=== PATIENT | male | born 1970 | race Caucasian/White ===

== ENCOUNTER 2022-08-30 21:19 | Inpatient (IN) | payer MEDICAID ==
[~2022-08-30] VITALS: Ht 167.6 cm; Wt 68.5 kg
[2022-08-30] MEDS ORDERED: NOREPINEPHRINE 8MG/250ML PMX 250 ML IV ONE (21:30)
[2022-08-30] MEDS ORDERED: DOPAMINE 800MG/500ML PREMIX 500 ML IV ONE (21:45)
[2022-08-30] MEDS ORDERED: NOREPINEPHRINE 8 MG in DEXT 5% WATER 242 ML IV NR (21:45)
[2022-08-30] MEDS ORDERED: DOPAMINE 800 MG PREMIX 250 ML IV PRN (22:00)
[2022-08-30] MEDS ORDERED: DOPAMINE 400 MG PREMIX 250 ML IV PRN (22:00)
[2022-08-30 22:39] LABS: BASOPHILS % 1.3 % (0.0-2.0); EOSINOPHILS % 4.4 % (0.0-5.0); LYMPHOCYTES % 12.9 % (20.0-50.0); MEAN CORPUSCULAR HEMOGLOBIN 29.6 pg (28.0-32.0); MEAN CORPUSCULAR VOLUME 89.1 fL (80.0-94.0); NEUTROPHILS % 74.4 % (40.0-76.0); PLATELET 152 x1000/uL (130-400); RED BLOOD CELL COUNT 4.04 mill/uL (4.7-6.1); RED CELL DISTRIBUTION WIDTH 17.9 % (11.6-14.6)
[2022-08-30 22:45] LABS: CHLORIDE 99 mEq/L (98-107)
[2022-08-30 22:57] LABS: ETHANOL BLOOD < 10 mg/dL
[2022-08-30] MEDS ORDERED: DEXTROSE 50% WATER 50ML SYRINGE IV ONE (23:30)
[2022-08-30] MEDS ORDERED: INSULIN REGULAR (HUMULIN R) 300UNITS/3ML VIAL IV ONE (23:30)
[2022-08-30] MEDS ORDERED: ALBUTEROL (0.083%) 2.5MG/3ML NEB HHN ONE (23:30)
[2022-08-30] MEDS ORDERED: SODIUM BICARBONATE 8.4% 1 MEQ/ML 50ML SYR IV ONE (23:30)
[2022-08-30] MEDS ORDERED: CALCIUM CHLORIDE 1GM/10ML SYR IV ONE (23:30)
[2022-08-31] VITALS (37 sets, daily range): BP systolic 138–185; BP diastolic 50–112
[2022-08-31] MEDS ORDERED: NOREPINEPHRINE 8MG/250ML PMX 250 ML IV ONE (00:45)
[2022-08-31] MEDS ORDERED: NOREPINEPHRINE 8 MG in DEXT 5% WATER 242 ML IV NR (01:00)
[2022-08-31] MEDS ORDERED: ONDANSETRON HCL 4MG/2ML INJ IV PRN (06:00)
[2022-08-31] MEDS ORDERED: DIPHENHYDRAMINE 50MG/ML VIAL IV PRN (06:00)
[2022-08-31] MEDS ORDERED: ACETAMINOPHEN 325MG TABLET PO PRN (06:00)
[2022-08-31] MEDS ORDERED: NOREPINEPHRINE 32 MG in DEXT 5% WATER 218 ML IV PRN (06:00)
[2022-08-31 06:23] LABS: HEPATITIS B SURFACE ANTIGEN NEGATIVE
[2022-08-31 08:14] LABS: BASOPHILS % 1.2 % (0.0-2.0); EOSINOPHILS % 3.4 % (0.0-5.0); HEMATOCRIT. 28.3 % (42.0-52.0); HEMOGLOBIN. 9.5 g/dL (14.0-18.0); LYMPHOCYTES % 13.6 % (20.0-50.0); MEAN CORPUSCULAR HEMOGLOBIN 29.7 pg (28.0-32.0); MEAN CORPUSCULAR VOLUME 88.6 fL (80.0-94.0); MEAN PLATELET VOLUME 8.6 fl (7.4-10.4); NEUTROPHILS % 72.8 % (40.0-76.0); PLATELET 92 x1000/uL (130-400); RED CELL DISTRIBUTION WIDTH 17.9 % (11.6-14.6)
[2022-08-31 08:23] LABS: PHOSPHORUS 2.9 mg/dL (2.5-4.9)
[2022-08-31] MEDS ORDERED: CARVEDILOL 12.5MG TABLET PO SCH (09:00)
[2022-08-31] MEDS ORDERED: FUROSEMIDE 40MG TABLET PO SCH (09:00)
[2022-08-31] MEDS ORDERED: GABAPENTIN 100MG CAPSULE PO SCH (21:00)
[2022-08-31] MEDS ORDERED: TRAZODONE HCL 50MG TABLET PO SCH (21:00)
== END 2022-08-31 13:00 | disposition home or self-care (01) | DRG 425 ==
LOC: ER 21:19 → CVICU 08-31 01:08 → EDBEDREQTM 08-31 01:20 → EDBEDREQ 08-31 01:20
PROVIDERS: ADMIT Internal Medicine; ATTEND Internal Medicine
PROC: 5A1D70Z Performance of Urinary Filtration, Intermittent, Less than 6 Hours Per Day (ICD-10-PCS; principal; 2022-08-31)
DX: E87.5 Hyperkalemia (principal); R57.9 Shock, unspecified; I44.2 Atrioventricular block, complete; I12.0 Hypertensive chronic kidney disease with stage 5 chronic kidney disease or end stage renal disease; D69.6 Thrombocytopenia, unspecified; N18.6 End stage renal disease; E11.22 Type 2 diabetes mellitus with diabetic chronic kidney disease; D63.1 Anemia in chronic kidney disease; Z99.2 Dependence on renal dialysis
CPT/HCPCS: 36415; 71045; 80048; 80053; 80320; 82962; 83605; 83880; 84100; 84443; 84484; 85025; 86705; 86709; 86803; 87340; 90935; 93005; 94644; 99291; J1265; J1815; J2405; J3490; J7060; G0480

== ENCOUNTER 2025-01-12 12:58 | Emergency (ER) | payer MEDICAID ==
[~2025-01-12] VITALS: Ht 170.2 cm; Wt 75.0 kg
[~2025-01-12 12:58] MED LIST: ATOR40TA70 PO; CARV25TA47 PO; GABA-1180 PO
[2025-01-12 13:00] VITALS: O2SAT 99
[2025-01-12 13:27] VITALS: TEMP 37; O2SAT 99
[2025-01-12 14:23] LABS: BASOPHILS % 1.5 % (0.0-2.0); EOSINOPHILS % 6.1 % (0.0-5.0); LYMPHOCYTES % 9.5 % (20.0-50.0); MEAN PLATELET VOLUME 7.7 fl (7.4-10.4); MONOCYTES % 8.1 % (2.0-8.0); NEUTROPHILS % 74.8 % (40.0-76.0); PLATELET 147 x1000/uL (130-400); RED BLOOD CELL COUNT 2.28 mill/uL (4.7-6.1); RED CELL DISTRIBUTION WIDTH 19.8 % (11.6-14.6)
[2025-01-12 14:32] LABS: HEMATOCRIT. 20.1 % (42.0-52.0); HEMOGLOBIN. 6.6 g/dL (14.0-18.0)
[2025-01-12 14:34] LABS: UREA NITROGEN BLOOD 37 mg/dL (9-23)
[2025-01-12 14:36] LABS: ASPARTATE AMINOTRANSFERASE 50 IU/L (<34); BILIRUBIN DIRECT 0.6 mg/dL (<=3.0); BILIRUBIN TOTAL 0.8 mg/dL (0.1-1.0); PROTEIN TOTAL 7.0 g/dL (6.0-8.3); TROPONIN I HIGH SENSITIVITY 13 ng/L (3.0-53)
[2025-01-12 14:40] LABS: CREATININE 5.0 mg/dL (0.6-1.3)
[2025-01-12] MEDS ORDERED: SODIUM ZIRCONIUM CYCLOSILICATE 10GM/PACKET PO SCH (15:15)
[2025-01-12] MEDS ORDERED: CEFTRIAXONE 1GM/50ML 50 ML IV ONE (15:30)
[2025-01-12 15:35] LABS: PHOSPHORUS 5.0 mg/dL (2.5-4.9)
[2025-01-12 16:12] LABS: TROPONIN I HIGH SENSITIVITY 13 ng/L (3.0-53)
[2025-01-12 16:15] VITALS: BP 157/92; PULSE 77; RESP 22; TEMP 98.60
== END 2025-01-12 16:36 | disposition left against medical advice (07) ==
LOC: ER 12:58 → EDBEDREQTM 16:07 → EDBEDREQ 16:07 → ENRESERV 16:15 → ER 16:36 → CMPBEDREQ 17:34
DX: D64.9 Anemia, unspecified (principal); N18.6 End stage renal disease; I13.2 Hypertensive heart and chronic kidney disease with heart failure and with stage 5 chronic kidney disease, or end stage renal disease; E11.22 Type 2 diabetes mellitus with diabetic chronic kidney disease; I50.9 Heart failure, unspecified; Z99.2 Dependence on renal dialysis; Z79.899 Other long term (current) drug therapy
CPT/HCPCS: 80076; 80048; 82040; 83880; 83605; 83735; 84100; 84443; 85025; 86850; 86900; 86901; 86920; 87040; 84484; 36415; 71045; 93005; 99285; 83970; Z7610 ×2; A4606

== ENCOUNTER 2025-03-22 14:54 | Emergency (ER) | payer SELFPAY ==
[~2025-03-22] VITALS: Ht 152.4 cm; Wt 67.0 kg
[~2025-03-22 14:54] MED LIST changes: +SEVE800T8 PO
[2025-03-22 15:02] VITALS: O2SAT 97
[2025-03-22 15:03] VITALS: BP 118/85; PULSE 82; RESP 18; TEMP 36.7; O2SAT 98
[2025-03-22 16:14] LABS: BASOPHILS % 0.9 % (0.0-2.0); EOSINOPHILS % 5.0 % (0.0-5.0); HEMATOCRIT. 27.5 % (42.0-52.0); HEMOGLOBIN. 9.1 g/dL (14.0-18.0); LYMPHOCYTES % 11.7 % (20.0-50.0); MEAN PLATELET VOLUME 8.6 fl (7.4-10.4); MONOCYTES % 6.1 % (2.0-8.0); NEUTROPHILS % 76.3 % (40.0-76.0); PLATELET 163 x1000/uL (130-400); RED BLOOD CELL COUNT 3.01 mill/uL (4.7-6.1); RED CELL DISTRIBUTION WIDTH 19.1 % (11.6-14.6)
[2025-03-22 16:29] LABS: TROPONIN I HIGH SENSITIVITY 34 ng/L (3.0-53)
[2025-03-22 16:31] LABS: UREA NITROGEN BLOOD 81 mg/dL (9-23)
[2025-03-22 16:33] LABS: ASPARTATE AMINOTRANSFERASE 41 IU/L (<34); BILIRUBIN DIRECT 0.6 mg/dL (<=3.0); BILIRUBIN TOTAL 0.8 mg/dL (0.1-1.0); PROTEIN TOTAL 7.5 g/dL (6.0-8.3)
[2025-03-22 17:25] LABS: CREATININE 13.6 mg/dL (0.6-1.3)
[2025-03-22] MEDS ORDERED: INSULIN REGULAR (HUMULIN R) 1000UNITS/10ML VIAL IV ONE (17:30)
[2025-03-22] MEDS ORDERED: CALCIUM CHLORIDE 1GM/10ML SYR IV ONE (17:30)
[2025-03-22] MEDS ORDERED: DEXTROSE 50% WATER 50ML SYRINGE IV ONE (17:30)
[2025-03-22] MEDS ORDERED: ALBUTEROL (0.5%) 2.5MG/0.5ML NEB HHN ONE (17:30)
== END 2025-03-22 17:37 | disposition left against medical advice (07) ==
LOC: ER 14:54 → EDBEDREQTM 17:33 → EDBEDREQ 17:33 → ER 17:37 → CMPBEDREQ 18:41
DX: E87.5 Hyperkalemia (principal); Z91.158 Patient's noncompliance with renal dialysis for other reason; I13.11 Hypertensive heart and chronic kidney disease without heart failure, with stage 5 chronic kidney disease, or end stage renal disease; I25.10 Atherosclerotic heart disease of native coronary artery without angina pectoris; N18.6 End stage renal disease; Z99.2 Dependence on renal dialysis; Z79.899 Other long term (current) drug therapy
CPT/HCPCS: 80076; 80048; 83880; 83605; 85025; 84484; 36415; 71045; 94640; 93005; 99285; Z7610